=== PATIENT | male | born 1985 | race Caucasian/White ===

== ENCOUNTER 2017-08-23 11:53 | Emergency (ER) | payer OTHER ==
[~2017-08-23] VITALS: Wt 79.1 kg
[2017-08-23 13:05] LABS: BASOPHIL # 0.1 10^3/ul (0.0-0.1); BASOPHILS % 0.7 % (0.0-2.0); EOSINOPHILS # 0.4 10^3/ul (0.0-0.5); EOSINOPHILS % 5.6 % (0.0-7.0); HEMATOCRIT 44.7 % (42.0-52.0); HEMOGLOBIN 14.8 g/dl (14.0-18.0); LYMPHOCYTES # 1.9 10^3/ul (0.8-2.9); MEAN CORPUSCULAR HEMOGLOBIN 28.4 pg (29.0-33.0); MEAN CORPUSCULAR HGB CONC 33.1 g/dl (32.0-37.0); MEAN CORPUSCULAR VOLUME 85.6 fl (82.0-101.0); MEAN PLATELET VOLUME 10.9 fl (7.4-10.4); MONOCYTE # 0.5 10^3/ul (0.3-0.9); MONOCYTES % 7.6 % (0.0-11.0); NEUTROPHIL # 4.2 10^3/ul (1.6-7.5); NEUTROPHILS % 58.7 % (39.0-77.0); PLATELET COUNT 269 10^3/UL (140-415); RED BLOOD COUNT 5.22 10^6/ul (4.70-6.10); WHITE BLOOD COUNT 7.1 10^3/ul (4.8-10.8)
[2017-08-23 13:08] LABS: ADD UMIC NO; UR ASCORBIC ACID NEGATIVE (NEGATIVE); UR BILIRUBIN (Dip) NEGATIVE (NEGATIVE); UR BLOOD (Dip) NEGATIVE (NEGATIVE); UR CLARITY CLEAR (CLEAR); UR COLOR YELLOW (YELLOW); UR GLUCOSE (Dip) NEGATIVE (NEGATIVE); UR KETONES (Dip) NEGATIVE (NEGATIVE); UR LEUKOCYTE ESTERASE (Dip) NEGATIVE Leu/ul (NEGATIVE); UR NITRITE (Dip) NEGATIVE (NEGATIVE); UR SPECIFIC GRAVITY (Dip) 1.019 (1.003-1.030); UR TOTAL PROTEIN (Dip) NEGATIVE (NEGATIVE); UR UROBILINOGEN (Dip) NEGATIVE (NEGATIVE)
--- NOTE | 2017-08-23 13:14 | RADRPT ---
PROCEDURE: CT ABDOMEN AND PELVIS WITHOUT CONTRAST. CLINICAL INDICATION: Abdominal pain and rectal bleeding TECHNIQUE: CT scan of the abdomen and pelvis without contrast was performed on a multidetector hig h-resolution CT scanner. The patient was scanned without intravenous contrast. Coronal and sagittal reformatted images were obtained from the axial source images. Images were reviewed on a high-resol [employer] PACS workstation. The total exam CTDI equals 9.4 mGy and the total exam DLP equals 572.7 mGy-c m. One or more of the following dose reduction techniques were used: Automated exposure control. Adjustment of the mA and/or kV according to patient size. Use of iterative reconstruction technique. DICOM images are available COMPARISON: None FINDINGS: CT abdomen: The lung bases are clear. The heart size is within normal limits. There is no significant pericardia l effusion. Hepatic morphology is within normal limits. No gross contour deforming masses. The gallbladder is wi thin normal limits. No evidence of intrahepatic or extrahepatic biliary dilatation. The spleen and pancreas are within normal limits. Both adrenal glands are within normal limits. Both kidneys are in normal anatomic position. No evidence of obstruction or hydronephrosis. No gross renal/ureteric calculi. The visualized GI tract demonstrates stool filled loops of large bowel. No evidence of bowel obstruc tion. The appendix is not clearly identified, however no evidence of inflammatory changes within the right lower quadrant. The unenhanced aorta is unremarkable. Several shoddy retroperitoneal lymph nodes are identified. CT pelvis: The bladder is within normal limits. Prostate gland is normal size with small calcification. The rec tosigmoid colon demonstrates stool. No significant free fluid. No significant pelvic lymphadenopathy . The visualized osseous structures, appears to be within normal limits. IMPRESSION: 1. No evidence of acute intra-abdominal/pelvic inflammatory process. No evidence of bowel obstructio n. The appendix is not clearly identified, however no inflammatory changes within the right lower qu adrant. 2. Stool filled loops of large bowel suggestive of constipation. The rectosigmoid colon otherwise ap pear to be within limits. 3. No free fluid or free air. No gross focal fluid collections. Otherwise, unremarkable unenhanced CT scan of the abdomen/pelvis. RPTAT: AAPP Javad Steele Physician Date Time Electronically viewed and signed by Javad Steele Physician on 08/23/2017 13:14 JL/
[2017-08-23 13:37] LABS: ALBUMIN/GLOBULIN RATIO 1.25; BILIRUBIN,INDIRECT 0.1 mg/dl (0-1.1); BILIRUBIN,TOTAL 0.1 mg/dl (0.2-1.3); CALCIUM 9.1 mg/dl (8.4-10.2); CREATININE 0.7 mg/dl (0.61-1.24); TOTAL PROTEIN 7.2 g/dl (6.1-8.1)
[2017-08-23] MEDS ORDERED: DOCU-144 PO (13:54)
[2017-08-23] MEDS ORDERED: IBUP800T25 PO (13:54)
[2017-08-23 14:10] VITALS: BP 123/66; PULSE 83; RESP 20; TEMP 98.2
--- NOTE | 2017-08-23 14:50 | ERD ---
ER Documentation Chief Complaint Chief Complaint rectal bleeding when using restroom x1week HPI 32-year-old male complaining of rectal bleeding 1 week. Patient states that he has blood on the tissue when he wipes it is bright red and has noted some blood within the bowl. Mild diffuse abdominal pain. Has history of hernia repair in 2015 on the left side and has developed a hernia on the right side. Denies vomiting. Denies fever. Has not taken medications for symptoms. States that he is frequently constipated. ROS All systems reviewed and are negative except as per history of present illness. Medications Home Meds Active Scripts Ibuprofen* (Motrin*) 800 Mg Tab, 800 MG PO Q6, #30 TAB Prov:SHAREE NY PA-C 08/23/17 Docusate Sodium* (Colace*) 100 Mg Capsule, 100 MG PO TID, #30 CAP Prov:SHAREE NY PA-C 08/23/17 Allergies Allergies: Coded Allergies: No Known Allergy (Unverified , 08/23/17) PMhx/Soc History of Surgery: No Anesthesia Reaction: No Hx Neurological Disorder: No Hx Respiratory Disorders: No Hx Cardiac Disorders: No Hx Psychiatric Problems: No Hx Miscellaneous Medical Probl: No Hx Alcohol Use: No Hx Substance Use: No Hx Tobacco Use: No Physical Exam Vitals Vital Signs Date Time Temp Pulse Resp B/P Pulse Ox O2 Delivery O2 Flow Rate FiO2 08/23/17 14:10 98.2 83 20 123/66 100 08/23/17 11:56 97.1 82 20 135/69 100 Physical Exam GENERAL: The patient is well-appearing, well-nourished, in no acute distress HEENT: Atraumatic. Conjunctivae are pink. Pupils equal, round, and reactive to light. There is no scleral icterus. Tympanic membranes clear bilaterally. Oropharynx clear. No nystagmus or photophobia. NECK: C-spine is soft and supple. There is no meningismus. There is no cervical lymphadenopathy. CHEST: Clear to auscultation bilaterally. There are no rales, wheezes or rhonchi. HEART: Regular rate and rhythm. No murmurs, clicks, rubs or gallops. No S3 or S4. ABDOMEN:Soft, nontender and nondistended. Good bowel sounds. No rebound or guarding. No gross peritonitis. No gross organomegaly or masses. No Villagomez sign or McBurney point tenderness. RECTUM: Multiple hemorrhoid skin tags. Result Diagram: 08/23/17 1250 08/23/17 1250 Results 24 hrs Laboratory Tests Test 08/23/17 12:50 White Blood Count 7.110^3/ul Red Blood Count 5.2210^6/ul Hemoglobin 14.8g/dl Hematocrit 44.7% Mean Corpuscular Volume 85.6fl Mean Corpuscular Hemoglobin 28.4pg Mean Corpuscular Hemoglobin Concent 33.1g/dl Red Cell Distribution Width 13.0% Platelet Count 41903^3/UL Mean Platelet Volume 10.9fl Neutrophils % 58.7% Lymphocytes % 27.0% Monocytes % 7.6% Eosinophils % 5.6% Basophils % 0.7% Nucleated Red Blood Cells % 0.0/100WBC Neutrophils # 4.210^3/ul Lymphocytes # 1.910^3/ul Monocytes # 0.510^3/ul Eosinophils # 0.410^3/ul Basophils # 0.110^3/ul Nucleated Red Blood Cells # 0.010^3/ul Urine Color YELLOW Urine Clarity CLEAR Urine pH 5.0 Urine Specific [place] 1.019 Urine Ketones NEGATIVEmg/dL Urine Nitrite NEGATIVEmg/dL Urine Bilirubin NEGATIVEmg/dL Urine Urobilinogen NEGATIVEmg/dL Urine Leukocyte Esterase NEGATIVELeu/ul Urine Hemoglobin NEGATIVEmg/dL Urine Glucose NEGATIVEmg/dL Urine Total Protein NEGATIVEmg/dl Sodium Level 144mmol/L Potassium Level 4.0mmol/L Chloride Level 104mmol/L Carbon Dioxide Level 29mmol/L Anion Gap 15 Blood Urea Nitrogen 11mg/dl Creatinine 0.70mg/dl Glucose Level 83mg/dl Calcium Level 9.1mg/dl Total Bilirubin 0.1mg/dl Direct Bilirubin 0.00mg/dl Indirect Bilirubin 0.1mg/dl Aspartate Amino Transf (AST/SGOT) 14IU/L Alanine Aminotransferase (ALT/SGPT) 38IU/L Alkaline Phosphatase 47IU/L Total Protein 7.2g/dl Albumin 4.0g/dl Globulin 3.20g/dl Albumin/Globulin Ratio 1.25 Lipase 62U/L Procedures/MDM DIAGNOSTIC IMAGING REPORT Patient: ОЛЬГА MAURER : 1985 Age: 32 Sex: M MR #: [id number] [facility]: [id number] DOS: 08/23/17 1241 Ordering MD: ROBERTO NY PA-C Location: [facility] Room/Bed: PROCEDURE: CT ABDOMEN AND PELVIS WITHOUT CONTRAST. CLINICAL INDICATION: Abdominal pain and rectal bleeding TECHNIQUE: CT scan of the abdomen and pelvis without contrast was performed on a multidetector high-resolution CT scanner. The patient was scanned without intravenous contrast. Coronal and sagittal reformatted images were obtained from the axial source images. Images were reviewed on a high-resolution PACS workstation. The total exam CTDI equals 9.4 mGy and the total exam DLP equals 572.7 mGy-cm. One or more of the following dose reduction techniques were used: Automated exposure control. Adjustment of the mA and/or kV according to patient size. Use of iterative reconstruction technique. DICOM images are available COMPARISON: None FINDINGS: CT abdomen: The lung bases are clear. The heart size is within normal limits. There is no significant pericardial effusion. Hepatic morphology is within normal limits. No gross contour deforming masses. The gallbladder is within normal limits. No evidence of intrahepatic or extrahepatic biliary dilatation. The spleen and pancreas are within normal limits. Both adrenal glands are within normal limits. Both kidneys are in normal anatomic position. No evidence of obstruction or hydronephrosis. No gross renal/ureteric calculi. The visualized GI tract demonstrates stool filled loops of large bowel. No evidence of bowel obstruction. The appendix is not clearly identified, however no evidence of inflammatory changes within the right lower quadrant. The unenhanced aorta is unremarkable. Several shoddy retroperitoneal lymph nodes are identified. CT pelvis: The bladder is within normal limits. Prostate gland is normal size with small calcification. The rectosigmoid colon demonstrates stool. No significant free fluid. No significant pelvic lymphadenopathy. The visualized osseous structures, appears to be within normal limits. IMPRESSION: 1. No evidence of acute intra-abdominal/pelvic inflammatory process. No evidence of bowel obstruction. The appendix is not clearly identified, however no inflammatory changes within the right lower quadrant. 2. Stool filled loops of large bowel suggestive of constipation. The rectosigmoid colon otherwise appear to be within limits. 3. No free fluid or free air. No gross focal fluid collections. Otherwise, unremarkable unenhanced CT scan of the abdomen/pelvis. ER Course: Guiac negative MDM: 32-year-old male planing of rectal bleeding. Patient's hemoglobin is stable and guaiac card is negative. I have low suspicion for active GI bleed at this time. I believe patient likely has constipation which causes straining and rupture of hemorrhoids. Patient's vital signs are stable. I do not feel there is indication for admission at this time. Patient is discharged with strict ER precautions and stool softeners. Patient is told symptoms change or worsen to return to the ER immediately. All questions answered discharge. Departure Diagnosis: Primary Impression: Hemorrhoids Condition: Stable Patient Instructions: Hemorrhoids Referrals: [facility] YOU HAVE RECEIVED A MEDICAL SCREENING EXAM AND THE RESULTS INDICATE THAT YOU DO NOT HAVE A CONDITION THAT REQUIRES URGENT TREATMENT IN THE EMERGENCY DEPARTMENT. FURTHER EVALUATION AND TREATMENT OF YOUR CONDITION CAN WAIT UNTIL YOU ARE SEEN IN YOUR DOCTORS OFFICE WITHIN THE NEXT 1-2 DAYS. IT IS YOUR RESPONSIBILITY TO MAKE AN APPOINTMENT FOR FOLOW-UP CARE. IF YOU HAVE A PRIMARY DOCTOR --you should call your primary doctor and schedule an appointment IF YOU DO NOT HAVE A PRIMARY DOCTOR YOU CAN CALL OUR PHYSICIAN REFERRAL HOTLINE AT IF YOU CAN NOT AFFORD TO SEE A PHYSICIAN YOU CAN CHOSE FROM THE FOLLOWING [facility] [address] [facility]. [facility] [address] [facility] [facility] [address] [facility] [facility] [address] [facility] [facility] [phone] [facility]. [facility]. [address] Additional Instructions: FOLLOW UP WITH YOUR PRIMARY CARE PHYSICIAN TOMORROW.Return to this facility if you are not improving as expected. SHAREE NY PA-C Aug 23, 2017 14:50
== END 2017-08-23 14:10 | disposition home or self-care (01) ==
LOC: FTE 11:53
DX: K64.4 Residual hemorrhoidal skin tags (principal)
CPT/HCPCS: 36415; 74176; 80053; 81003; 83690; 85025; Z7502

== ENCOUNTER 2018-01-18 10:34 | Observation (INO) | END 2018-01-22 23:30 | disposition home or self-care (01) ==

== ENCOUNTER 2019-04-08 10:30 | Emergency (ER) | payer SELFPAY ==
[~2019-04-08 10:30] MED LIST: HYDR-3601 PO
== END 2019-04-08 11:51 | disposition left against medical advice (07) ==
LOC: E/R 10:30
DX: Z53.21 Procedure and treatment not carried out due to patient leaving prior to being seen by health care provider (principal)